=== PATIENT | female | born 1980 | race Caucasian/White ===

== ENCOUNTER 2019-09-08 06:27 | Inpatient (IN) | payer BC ==
[~2019-09-08] VITALS: Ht 154.9 cm; Wt 53.1 kg
== END 2019-09-08 18:50 | disposition home or self-care (01) | DRG 770 ==
LOC: ER 06:27 → SEC-K 12:16
PROVIDERS: ADMIT Obstetrics & Gynecology
PROC: 10D17ZZ Extraction of Products of Conception, Retained, Via Natural or Artificial Opening (ICD-10-PCS; principal; 2019-09-08 13:00)
DX: O03.4 Incomplete spontaneous abortion without complication (principal)